=== PATIENT | male | born 1970 | race African-American/Black ===

== ENCOUNTER 2017-08-11 10:13 | Emergency (ER) | payer BC ==
[~2017-08-11] VITALS: Ht 180.3 cm; Wt 74.9 kg
[~2017-08-11 10:13] MED LIST: BRINTELLIX20 MG PO; REMERON45 MG PO; SEROQUEL100 MG PO; ZUBSOLV 8.6-2.1 EACH SL
[2017-08-11 11:58] LABS: HEMATOCRIT 35.9 % (38.0-50.0); HEMOGLOBIN 11.9 G/DL (12.5-16.6); MCH 26.6 PG (29.0-34.0); MCHC 33.1 G/DL (30.0-36.0); MCV 80.1 FL (86-99); PLATELET COUNT 293 K/uL (156-360); RBC DIS.WIDTH-CV 14.1 % (11.8-14.6); RBC DIS.WIDTH-SD 41.2 % (39-53); RED BLOOD COUNT 4.48 M/uL (4.00-5.50); WHITE BLOOD COUNT 9.5 K/uL (4.1-10.2)
[2017-08-11 12:15] LABS: CHLORIDE 111 mEq/L (99-109); POTASSIUM 3.9 mEq/L (3.7-5.4); SODIUM 143 mEq/L (136-147)
[2017-08-11 12:17] LABS: GLUCOSE 103 mg/dL (70-99); TOTAL PROTEIN 6.8 g/dL (6.4-8.3)
[2017-08-11 12:19] LABS: TOTAL BILIRUBIN 0.4 mg/dL (0.0-1.0)
[2017-08-11 12:20] LABS: SERUM ETHYL ALCOHOL < 10 mg/dL
[2017-08-11 12:21] LABS: ALKALINE PHOSPHATASE 75 IU/L (3-129); GFR ESTIMATE (CALCULATED) > 59 mL/min/ (58.99-99999)
[2017-08-11 12:22] LABS: AST (GOT) 13 IU/L (2-34); UREA NITROGEN (BUN) 11 mg/dL (9-23)
[2017-08-11 12:24] LABS: ALT (GPT) 9 IU/L (3-49); LIPASE 20 U/L (1.0-51.0)
[2017-08-11] MEDS ORDERED: ZOFRAN4 MG PO (12:28)
[2017-08-11] MEDS ORDERED: ATARAX,VISTARIL25 MG PO (12:28)
[2017-08-11 12:52] VITALS: BP 116/88
== END 2017-08-11 12:53 | disposition home or self-care (01) ==
LOC: EME 10:13
PROVIDERS: Emergency Medicine
DX: F10.10 Alcohol abuse, uncomplicated (principal); Y90.0 Blood alcohol level of less than 20 mg/100 ml; F32.9 Major depressive disorder, single episode, unspecified; F17.200 Nicotine dependence, unspecified, uncomplicated
CPT/HCPCS: 80053; 83690; 85027; 99281; 99284; G0480; Q0177